=== PATIENT | male | born 1965 | race Caucasian/White ===

== ENCOUNTER 2016-11-29 04:59 | Observation (INO) | payer OTHER ==
[2016-11-29] VITALS (9 sets, daily range): BP systolic 110–159; BP diastolic 76–99; PULSE 73–103; RESP 16–20; TEMP 98.2; O2SAT 95–99
[~2016-11-29] VITALS: Ht 170.2 cm; Wt 68.0 kg
[~2016-11-29 04:59] MED LIST: ATEN-100 PO; COUM2.5T PO; FOLI1TAB PO; LISI-363 PO; PERC10TA27 PO; RANI150 PO; SIMV40TA OR; TRAM50TA PO; TYLE3 PO; WARF6 PO
[2016-11-29] MEDS ORDERED: ASPIRIN 81 MG CHEW TAB PO ONE (05:30)
[2016-11-29] MEDS ORDERED: LISI-515 PO (05:30)
[2016-11-29] MEDS ORDERED: WARF-23 PO (05:30)
[2016-11-29] MEDS ORDERED: ATEN1TAB73 PO (05:30)
[2016-11-29] MEDS ORDERED: TRAM50TA PO (05:30)
[2016-11-29] MEDS ORDERED: SODIUM CHLORIDE 0.9% FLUSH 5 ML FLUSH IVF PRN ×2 (05:30→11:00)
[2016-11-29] MEDS ORDERED: SIMV20TA PO (05:30)
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
[2016-11-29 06:14] LABS: APTT (PATIENT) 28.2 SEC (24.3-30.1); INTERNATIONAL NORMALIZED RATIO 1.1 RATIO; PROTHROMBIN TIME - PATIENT 12.5 SEC (9.8-11.6)
[2016-11-29 06:32] LABS: AUTOMATED NEUTROPHIL # 6.2 TH/MM3 (1.8-7.7); BASOPHIL # 0.1 TH/MM3 (0-0.2); BASOPHIL % 1.4 % (0.0-2.0); EOSINOPHIL # 0.2 TH/MM3 (0-0.4); EOSINOPHIL % 1.6 % (0.0-4.0); HEMO FLAGS DIFF FINAL; LYMPH % 17.7 % (9.0-44.0); LYMPHOCYTE # 1.7 TH/MM3 (1.0-4.8); MEAN CELL VOLUME 97.1 FL (80.0-100.0); MEAN CORPUSCULAR HEMOGLOBIN 33.5 PG (27.0-34.0); MEAN CORPUSCULAR HGB CONC 34.4 % (32.0-36.0); MONO % 12.9 % (0.0-8.0); NEUT % 66.4 % (16.0-70.0); PLATELET COUNT 221 TH/MM3 (150-450); RED BLOOD COUNT 4.32 MIL/MM3 (4.50-5.90); RED CELL DISTRIBUTION WIDTH 14.5 % (11.6-17.2); WHITE BLOOD COUNT 9.4 TH/MM3 (4.0-11.0)
[2016-11-29 06:34] LABS: ANION GAP 10 MEQ/L (5-15); BICARBONATE 26.9 MEQ/L (21.0-32.0); BLOOD UREA NITROGEN 39 MG/DL (7-18); CHLORIDE 97 MEQ/L (98-107); GLOMERULAR FILTRATION RATE 52 ML/MIN (>89); POTASSIUM 3.3 MEQ/L (3.5-5.1); SODIUM (NA) 134 MEQ/L (136-145)
[2016-11-29 06:42] LABS: CREATINE KINASE 58 U/L (39-308)
--- NOTE | 2016-11-29 06:47 | RADRPT ---
EXAM DATE/TIME: 11/29/2016 06:06 [facility] COMPARISON: No previous studies available for comparison. INDICATIONS : Pt c/o Left arm numbness and chest pain. MEDICAL HISTORY : Hypertension. Angina. History of PE SURGICAL HISTORY : Bilateral femur pinning ENCOUNTER: Initial ACUITY: 1 day PAIN SCORE: 8/10 LOCATION: Bilateral chest FINDINGS: A single view of the chest demonstrates the lungs to be symmetrically aerated without evidence of mas s, infiltrate or effusion. The cardiomediastinal contours are unremarkable. Osseous structures are intact. CONCLUSION: The lungs are clear. Parish Hamilton MD on November 29, 2016 at 6:44 Board Certified Radiologist. This report was verified electronically.
[2016-11-29] MEDS ORDERED: IOHEXOL 350 MG/ML 10 ML VIAL (for RAD DIAG) IV ONE (06:59)
--- NOTE | 2016-11-29 07:14 | RADRPT ---
EXAM DATE/TIME: 11/29/2016 06:52 [facility] COMPARISON: CHEST SINGLE AP, November 29, 2016, 6:06. INDICATIONS : Chest pain and shortness of breath. IV CONTRAST: 75 cc Omnipaque 350 (iohexol) IV RADIATION DOSE: 7.95 CTDIvol (mGy) MEDICAL HISTORY : Hypertension. Cardiovascular disease SURGICAL HISTORY : None. ENCOUNTER: Initial ACUITY: 1 day PAIN SCALE: 5/10 LOCATION: Bilateral chest TECHNIQUE: Volumetric scanning of the chest was performed using a pulmonary embolism protocol MIP images were re constructed. Using automated exposure control and adjustment of the mA and/or kV according to patien t size, radiation dose was kept as low as reasonably achievable to obtain optimal diagnostic quality images. FINDINGS: PULMONARY ARTERIES: No filling defects are seen in the pulmonary arteries through the segmental level. LUNGS: There is no consolidation or pneumothorax . No concerning pulmonary nodule is visualized. PLEURAE: There is no pleural thickening or pleural effusion. MEDIASTINUM: There is good visualization of the great vessels of the middle mediastinum. No evidence of mediastin al or hilar adenopathy/mass. There is coronary artery calcification. MUSCULOSKELETAL: No acute osseous abnormality. MISCELLANEOUS: The visualized upper abdominal organs demonstrate no acute abnormality. There is diffuse low-density of the liver indicating steatosis. An ovoid right adrenal gland mass is present measuring approximate ly 17 mm. CONCLUSION: 1. No PE is identified. Additionally, the lungs are clear without a finding to explain the clinical s ymptoms. 2. Non acute findings include coronary artery calcification and hepatic steatosis. There is a 17 mm r ight adrenal gland mass. One was reported on the prior chest CT from 2010. However, it is available b y report only. López Olivia MD on November 29, 2016 at 7:06 Board Certified Radiologist. This report was verified electronically.
[2016-11-29 10:06] LABS: CREATINE KINASE 46 U/L (39-308)
[2016-11-29] MEDS ORDERED: cloNIDine HCL 0.1 MG TAB PO PRN (11:00)
[2016-11-29] MEDS ORDERED: ACETAMINOPHEN 500 MG CPLT PO PRN (11:00)
[2016-11-29] MEDS ORDERED: ONDANSETRON HCL 4 MG/2 ML VIAL IV PRN (11:00)
[2016-11-29] MEDS ORDERED: MORPHINE SULFATE 4 MG/ML INJ IV PUSH PRN (11:00)
[2016-11-29] MEDS ORDERED: SODIUM CHLORID 0.9% 500 ML INJ 500 ML IV ONE (11:00)
[2016-11-29] MEDS ORDERED: traMADol HCL 50 MG TAB PO PRN (11:15)
[2016-11-29] MEDS ORDERED: PANTOPRAZOLE SOD 40 MG DELAYED RELEASE TAB PO SCH (11:15)
[2016-11-29] MEDS ORDERED: LISINOPRIL 20 MG TAB PO SCH (11:15)
[2016-11-29] MEDS ORDERED: POTASSIUM CHLORIDE 20 MEQ CONTROLLED RELEASE TAB PO ONE (11:15)
[2016-11-29] MEDS ORDERED: WARF-18 PO (11:39)
[2016-11-29 12:26] LABS: CREATINE KINASE 32 U/L (39-308)
--- NOTE | 2016-11-29 12:28 | EKG ---
Date Performed: 11/29/2016 Time Performed: 05:25:24 PTAGE: 51 years EKG: Sinus rhythm NORMAL ECG PREVIOUS TRACING : 11/29/2016 05.20 DOCTOR: Layton Brooks Interpretating Date/Time 11/29/2016 12:26:39
--- NOTE | 2016-11-29 13:56 | TR ---
Date Performed: 11/29/2016 Time Performed: 13:12:26 DOCTOR: Layton Brooks DRUG LIST: CLINICAL HISTORY: CHEST PAIN REASON FOR TEST: CHEST PAIN REASON FOR ENDING: OBSERVATION: CONCLUSION: Lexiscan stress test was performed under standard four minute protocol. Radionuclide was injected one minute prior to ending the test. Developed shortness of breath and stomach pain. No electrocardiographic abnormalities were present to suggest ischemia. Recovery was prolonged with ino ntual resolution of symptoms. Nuclear imaging and interpretation are pending. COMMENTS:
--- NOTE | 2016-11-29 14:41 | RADRPT ---
EXAM DATE/TIME: 11/29/2016 12:43 [facility] COMPARISON: No previous studies available for comparison. INDICATIONS : Susbternal chest pain radiating to bilateral shoulders and down left arm with dyspnea. Angina. DOSE: 25.4 mCi Tc99m Myoview at stress. 8.5 mCi Tc99m Myoview at rest. 0.4 mg Lexiscan STRESS SYMPTOMS: shortness of breath stomach pain EJECTION FRACTION: > 70% MEDICAL HISTORY : Hypertension. SURGICAL HISTORY : Bilateral femur surgery and left ankle surgery. ENCOUNTER: Initial ACUITY: 1 day PAIN SCALE: 7/10 LOCATION: Substernal chest TECHNIQUE: The patient underwent pharmacologic stress with infusion of prescribed dose. Continuous ECG tracing was monitored during stress. Gated SPECT imaging was performed after stress and conventional SPECT i maging was performed at rest. The examination was performed on a SPECT/CT scanner, both attenuation and non-corrected datasets were reviewed. FINDINGS: DISTRIBUTION: The maximum perfused segment at stress is in the anteroseptal wall. PERFUSION STUDY: The pattern of perfusion at stress is within normal limits. GATED STUDY: There is intact wall motion and thickening without hypokinetic or dyskinetic segments. CONCLUSION: 1. No left ventricle perfusion abnormality is identified. 2. Normal left ventricle wall motion with greater than 70% ejection fraction calculated. RISK CATEGORY: Low (<1% Annual Mortality Rate) López Olivia MD on November 29, 2016 at 14:39 Board Certified Radiologist. This report was verified electronically.
[2016-11-29] MEDS ORDERED: REGADENOSON INJ 0.4 MG/5 ML SYR ONE (15:10)
--- NOTE | 2016-11-29 15:35 | EKG ---
Date Performed: 11/29/2016 Time Performed: 09:30:48 PTAGE: 51 years EKG: Sinus rhythm NORMAL ECG PREVIOUS TRACING : 11/29/2016 05.25 DOCTOR: Layton Brooks Interpretating Date/Time 11/29/2016 15:33:22
--- NOTE | 2016-11-29 17:07 | HHI.DCPOC ---
Discharge Care Plan Diagnosis: (1) Chest pain (2) Renal insufficiency (3) Hypertension (4) Hyperlipidemia (5) Hypokalemia (6) Adrenal mass (7) Hx pulmonary embolism Additional Problems NEED TO FOLLOW UP WITH GRIEVANCE AND APPEALS COORDINATOR FOR POSSIBLE ENDOSCOPY. NEED TO FOLLOW UP WITH WOOD TYPE FINISHER TO EVALUATE SHORTNESS OF BREATH. NEEDS TO EVALUATE RIGHT ADRENAL MASS. NEEDS WARFARIN EDUCATION. HAVE COUMADIN LEVEL CHECKED Thursday12/02/16. Goals to Promote Your Health * To prevent worsening of your condition and complications * To maintain your health at the optimal level Directions to Meet Your Goals Take your medications as prescribed Follow your dietary instruction Follow activity as directed Keep your appointments as scheduled Take your immunizations and boosters as scheduled If your symptoms worsen call your PCP, if no PCP go to Urgent Care Center or Emergency Room Smoking is Dangerous to Your Health. Avoid second hand smoke Call the 24-hour hour crisis hotline for domestic abuse at Rizwan Coello Nov 29, 2016 17:07
[2016-11-29] MEDS ORDERED: COUM5TAB PO (17:10)
--- NOTE | 2016-11-29 17:30 | EKG ---
Date Performed: 11/29/2016 Time Performed: 11:33:35 PTAGE: 51 years EKG: Sinus rhythm NORMAL ECG PREVIOUS TRACING : 11/29/2016 09.30 DOCTOR: Layton Brooks Interpretating Date/Time 11/29/2016 17:28:24
[2016-11-29] MEDS ORDERED: SODIUM CHLORIDE 0.9% FLUSH 5 ML FLUSH IVF SCH (21:00)
[2016-11-30] MEDS ORDERED: PRAVASTATIN SOD 40 MG TAB PO SCH (09:00)
[2016-11-30] MEDS ORDERED: ATENOLOL 25 MG TAB PO SCH (09:00)
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
== END 2016-11-29 19:15 | disposition home or self-care (01) ==
LOC: NEPE 04:59 → NEDA 07:29 → NEPHCDU 12:21
PROVIDERS: ADMIT Family Medicine; ATTEND Family Medicine
DX: R07.89 Other chest pain (principal); I10 Essential (primary) hypertension; E78.5 Hyperlipidemia, unspecified; N28.9 Disorder of kidney and ureter, unspecified; E87.6 Hypokalemia; E27.9 Disorder of adrenal gland, unspecified; E78.00 Pure hypercholesterolemia, unspecified; Z79.01 Long term (current) use of anticoagulants; Z86.711 Personal history of pulmonary embolism; Z87.891 Personal history of nicotine dependence
CPT/HCPCS: 71010; 71275; 78452; 80048; 82550; 83735; 84484; 85025; 85610; 85730; 93005; 93017; 99285; A9502; G0378; J2785; J7040; Q9967